=== PATIENT | female | born 1990 | race Caucasian/White ===

== ENCOUNTER 2018-02-15 10:30 | Observation (INO) | payer MEDICAID ==
[2018-02-12 16:18] LABS: CLARITY,URINE CLEAR (Clear); COLOR,URINE YELLOW (Yellow); GLUCOSE, URINE NEGATIVE (Neg); KETONES,URINE NEGATIVE (Neg); LEUKOCYTE ESTERASE ,URINE NEGATIVE (Neg); NITRITES, URINE NEGATIVE (Neg); OCCULT BLOOD,URINE NEGATIVE (Neg); PH,URINE 5.5 (4.8-8.0); PROTEIN,URINE NEGATIVE (Neg); UROBILINOGEN,URINE 0.2 E.U/dL (0.2-1.0)
[2018-02-12 16:21] LABS: BASOPHILS % (AUTO) 0.3 % (0-1); EOSINOPHILS # (AUTO) 0.2 X10'3 (0-0.9); EOSINOPHILS % (AUTO) 1.8 % (0-6); LYMPHOCYTES # (AUTO) 2.3 X10'3 (1.1-4.8); LYMPHOCYTES % (AUTO) 18.1 % (21-51); MEAN CORPUSCULAR HEMOGLOBIN 29.5 PG (27.0-31.0); MEAN CORPUSCULAR HGB CONC 34.5 % (33.0-36.5); MEAN CORPUSCULAR VOLUME 85.4 FL (78-98); MEAN PLATELET VOLUME 7.2 FL (7.4-10.4); MONOCYTES # (AUTO) 0.7 X10'3 (0-0.9); MONOCYTES % (AUTO) 5.2 % (2-12); NEUTROPHILS # (AUTO) 9.4 X10'3 (1.8-7.7); NEUTROPHILS % (AUTO) 74.6 % (42-75); PRE OP HEMATOCRIT 40.9 % (35.0-45.0); PRE OP HEMOGLOBIN 14.1 g/dL (12.0-16.0); PRE OP PLATELET COUNT 313 X10'3 (140-440); RED BLOOD COUNT 4.79 X10'6 (4.20-5.60); RED CELL DISTRIBUTION WIDTH 13.1 % (11.5-14.5)
[2018-02-12 16:21] LABS: UA COLLECTION TYPE NON-SPECIFIED
[2018-02-12 16:35] LABS: ALBUMIN 3.9 G/DL (3.4-5.0); ALBUMIN/GLOBULIN RATIO 0.9 (1.1-1.5); ALKALINE PHOSPHATASE 92 IU/L (46-116); BETA HCG,QUANTITATIVE < 1.0 mIU/ml; BLOOD UREA NITROGEN 13 MG/DL (7-18); BUN/CREATININE RATIO 17.6 (6.6-38.0); CALCIUM 9.3 MG/DL (8.5-10.1); CHLORIDE 103 MMOL/L (99-107); CREATININE 0.74 MG/DL (0.40-0.90); PRE OP ALT 25 U/L (30-65); PRE OP ANION GAP 11 (8-16); PRE OP AST 15 U/L (10-37); PRE OP BILIRUB, TOTAL 0.3 MG/DL (0.0-1.0); PRE OP GLUCOSE 103 MG/DL (70-104); PRE OP POTASSIUM 3.8 MMOL/L (3.4-5.1); PRE OP SODIUM 142 MMOL/L (135-145); TOTAL CARBON DIOXIDE 27.6 MMOL/L (24-32); TOTAL PROTEIN 8.2 G/DL (6.4-8.2); eGFR > 90 ML/MIN
[~2018-02-15] VITALS: Ht 162.6 cm; Wt 127.0 kg
[2018-02-15] VITALS (24 sets, daily range): BP systolic 94–149; BP diastolic 44–98
[~2018-02-15 10:30] MED LIST: NO HOME MEDS; ceFOXitin 2 GM ADDvantage bag 100 ML IV ONE; famotidine 20mg tablet PO ONE; ringers solution, lacted 1,000 ML IV SCH
[2018-02-15] MEDS ORDERED: scopolamine 1.5mg patch.TD72 TD ONE (11:38)
[2018-02-15] MEDS ORDERED: epiNEPHrine 1 mg/ml inj ONE (12:47)
[2018-02-15] MEDS ORDERED: fentaNYL/PF 50MCG/1 ML 2ML syringe ONE ×3 (13:28→14:07)
[2018-02-15] MEDS ORDERED: midazolam 2 mg/2 ml injection ONE (13:29)
[2018-02-15] MEDS: BUPIVAcaine/PF 2.5 mg/ml (0.25%) 30ml vial ONE ×2 (14:05→14:06)
[2018-02-15] MEDS ORDERED: ketorolac trometh. 30mg/ml inj. ONE (14:10)
[2018-02-15] MEDS ORDERED: dexamethasone sod phosphate 4mg/ml inj. ONE (14:10)
[2018-02-15] MEDS ORDERED: propofol inj 60 ML IV ONE (14:10)
[2018-02-15] MEDS ORDERED: ondansetron/PF 4mg/2ml inj ONE (14:10)
[2018-02-15] MEDS ORDERED: HYDROmorphone inj. 0.5 MG/0.5 ML DISP.SYRIN IV PRN ×2 (14:15)
[2018-02-15] MEDS ORDERED: meperidine/PF 50mg/ml syringe IV PRN (14:15)
[2018-02-15] MEDS ORDERED: ringers solution, lacted 1,000 ML IV SCH (14:15)
[2018-02-15] MEDS ORDERED: fentaNYL/PF 50MCG/1 ML 2ML syringe IV PRN ×2 (14:15)
[2018-02-15] MEDS ORDERED: proCHLORperazine 10 MG/2 ml inj IV PRN (14:15)
[2018-02-15] MEDS ORDERED: ondansetron/PF 4mg/2ml inj IV PRN ×2 (14:15→17:40)
[2018-02-15] MEDS ORDERED: ipratropium/albuterol 3ml nebule NEB ONE (16:20)
[2018-02-15] MEDS ORDERED: potassium Cl 20 mEq SR tablet PO PRN ×2 (17:40)
[2018-02-15] MEDS ORDERED: albuterol 2.5 MG/3 ML nebule NEB PRN (17:40)
[2018-02-15] MEDS ORDERED: magnesium Cl slow-release 64mg tablet PO PRN (17:40)
[2018-02-15] MEDS: K and/or MAG REPLACEMENT MC SCH (17:40)
[2018-02-15] MEDS ORDERED: potassium Cl 40MEQ/NS 500ml 500 ML IV PRN ×2 (17:40)
[2018-02-15] MEDS ORDERED: magnesium 2GM in 50ml NS 50 ML IV PRN (17:40)
[2018-02-15] MEDS ORDERED: magnesium hydroxide 30ml (MOM) UD suspension PO PRN (17:40)
[2018-02-15] MEDS ORDERED: mag hydrox/Alum hydrox/simeth 30ml oral suspension PO PRN (17:40)
[2018-02-15] MEDS ORDERED: magnesium 4gm in 100ml NS 100 ML IV PRN (17:40)
[2018-02-15] MEDS ORDERED: HYDROcodone/acetaminophen 10/325mg tab PO PRN (17:40)
[2018-02-15] MEDS ORDERED: acetaminophen 325mg tablet PO PRN ×2 (17:40)
[2018-02-15] MEDS: normal saline 1000ml 1,000 ML IV SCH (17:59)
[2018-02-15] MEDS ORDERED: iohexol 350MG/ML 100ml bottle IV ONE (18:10)
[2018-02-15] MEDS: HYDROcodone/acetaminophen 5mg/325mg tablet PO PRN (19:47)
[2018-02-15] MEDS ORDERED: temazepam 15mg capsule PO PRN (21:00)
[2018-02-16] VITALS (7 sets, daily range): BP systolic 91–109; BP diastolic 37–65
[2018-02-16] MEDS: HYDROcodone/acetaminophen 5mg/325mg tablet PO PRN ×2 (01:59→10:35)
[2018-02-16] MEDS: normal saline 1000ml 1,000 ML IV SCH (05:50)
[2018-02-16 05:59] LABS: HEMATOCRIT 34.2 % (35.0-45.0); HEMOGLOBIN 11.7 g/dl (12.0-16.0); MEAN CORPUSCULAR HEMOGLOBIN 29.4 PG (27.0-31.0); MEAN CORPUSCULAR HGB CONC 34.1 % (33.0-36.5); MEAN CORPUSCULAR VOLUME 86.2 FL (78-98); MEAN PLATELET VOLUME 7.5 FL (7.4-10.4); PLATELET COUNT 243 X10'3 (140-440); RED BLOOD COUNT 3.97 X10'6 (4.20-5.60); RED CELL DISTRIBUTION WIDTH 12.5 % (11.5-14.5); WHITE BLOOD COUNT 12.4 X10'3 (4.5-11.0)
[2018-02-16 06:33] LABS: ALBUMIN 2.8 G/DL (3.4-5.0); ANION GAP 10 (8-16); BLOOD UREA NITROGEN 10 MG/DL (7-18); BUN/CREATININE RATIO 16.9 (6.6-38.0); CALCIUM 7.5 MG/DL (8.5-10.1); CHLORIDE 108 MMOL/L (99-107); CREATININE 0.59 MG/DL (0.40-0.90); GLUCOSE 132 MG/DL (70-104); MAGNESIUM 1.6 MG/DL (1.5-2.4); POTASSIUM 3.7 MMOL/L (3.5-5.1); SODIUM 142 MMOL/L (135-145); TOTAL CARBON DIOXIDE 23.9 MMOL/L (24-32); eGFR > 90 ML/MIN
[2018-02-16] MEDS: K and/or MAG REPLACEMENT MC SCH (08:00)
== END 2018-02-16 13:50 | disposition home or self-care (01) ==
LOC: PAS 10:30 → SUR 3N 17:37
PROVIDERS: ADMIT Family Medicine; ATTEND Obstetrics & Gynecology Obstetrics
DX: Z30.2 Encounter for sterilization (principal); J96.00 Acute respiratory failure, unspecified whether with hypoxia or hypercapnia; E66.01 Morbid (severe) obesity due to excess calories; Z98.51 Tubal ligation status
CPT/HCPCS: 36415; 58661; 71275; 80048; 80053; 81003; 82948; 83735; 84702; 85025; 85027; 86885; 86900; 86901; 87070; 94640; 94760; 96374; 96375; G0378; J0171; J0694; J1100; J1170; J1885; J2175; J2250; J2405; J2704; J3010; J3490; J7030; J7120; Q9967; A7000

== ENCOUNTER 2020-04-16 07:46 | Observation (INO) | payer BC ==
[2020-04-09 15:29] LABS: BASOPHILS % (AUTO) 0.5 % (0-1); EOSINOPHILS # (AUTO) 0.2 X10'3 (0-0.9); EOSINOPHILS % (AUTO) 2.1 % (0-6); LYMPHOCYTES # (AUTO) 2.5 X10'3 (1.1-4.8); LYMPHOCYTES % (AUTO) 27.9 % (21-51); MEAN CORPUSCULAR HEMOGLOBIN 28.9 PG (27.0-31.0); MEAN CORPUSCULAR HGB CONC 33.5 g/dL (33.0-36.5); MEAN CORPUSCULAR VOLUME 86.1 FL (78-98); MEAN PLATELET VOLUME 6.9 FL (7.4-10.4); MONOCYTES # (AUTO) 0.6 X10'3 (0-0.9); MONOCYTES % (AUTO) 6.8 % (2-12); NEUTROPHILS # (AUTO) 5.7 X10'3 (1.8-7.7); NEUTROPHILS % (AUTO) 62.7 % (42-75); PRE OP HEMOGLOBIN 14.1 g/dL (12.0-16.0); PRE OP PLATELET COUNT 264 X10'3 (140-440); RED BLOOD COUNT 4.88 X10'6 (4.20-5.60); RED CELL DISTRIBUTION WIDTH 13.6 % (11.5-14.5)
[2020-04-09 15:43] LABS: ALBUMIN 3.9 G/DL (3.4-5.0); ALKALINE PHOSPHATASE 67 IU/L (46-116); BLOOD UREA NITROGEN 10 MG/DL (7-18); BUN/CREATININE RATIO 11.9 (6.6-38.0); CALCIUM 8.6 MG/DL (8.5-10.1); CHLORIDE 106 MMOL/L (99-107); CREATININE 0.84 MG/DL (0.40-0.90); PRE OP ALT 36 U/L (30-65); PRE OP ANION GAP 11 (8-16); PRE OP AST 31 U/L (10-37); PRE OP BILIRUB, TOTAL 0.4 MG/DL (0.0-1.0); PRE OP GLUCOSE 79 MG/DL (70-104); PRE OP POTASSIUM 3.7 MMOL/L (3.4-5.1); PRE OP SODIUM 143 MMOL/L (135-145); TOTAL CARBON DIOXIDE 26.2 MMOL/L (24-32); TOTAL PROTEIN 7.9 G/DL (6.4-8.2); eGFR 81 ML/MIN
[2020-04-09 15:56] LABS: HCG SERUM QL NEGATIVE
[2020-04-09 16:06] LABS: COLOR,URINE YELLOW (Yellow); GLUCOSE, URINE NEGATIVE (Neg); KETONES,URINE TRACE mg/dl (Neg); LEUKOCYTE ESTERASE ,URINE NEGATIVE (Neg); NITRITES, URINE NEGATIVE (Neg); OCCULT BLOOD,URINE NEGATIVE (Neg); PROTEIN,URINE NEGATIVE (Neg); UROBILINOGEN,URINE 0.2 E.U/dL (0.2-1.0)
[2020-04-09 16:07] LABS: CLARITY,URINE SLIGHTLY CLOUDY (Clear); UA COLLECTION TYPE CLN CATCH MIDSTREAM
[2020-04-09 16:09] LABS: MUCUS STRANDS MANY /LPF (Neg); SQUAMOUS EPITHELIAL CELL,UR FEW /LPF (FEW)
[2020-04-09 16:10] LABS: BACTERIA,URINE FEW /HPF (Neg); RBC,URINE 0-2 /HPF (0-2); WBC,URINE 0-4 /HPF (0-4)
[~2020-04-16] VITALS: Ht 162.6 cm; Wt 128.0 kg
[2020-04-16] VITALS (19 sets, daily range): BP systolic 113–136; BP diastolic 50–89
[~2020-04-16 07:46] MED LIST changes: +AMIT50TA3 PO; -NO HOME MEDS; +PRAM0.129 PO; +TRAM50TA2 PO; -ceFOXitin 2 GM ADDvantage bag 100 ML IV ONE; +ceFOXitin 2GM-NS 100mL ADDvant 100 ML IV ONE; +ceFOXitin sod/dextrose 2g/50ml 50 ML IV ONE; -ringers solution, lacted 1,000 ML IV SCH
[2020-04-16] MEDS ORDERED: neomy sulf/polymyxin B sulf. GU irrigation 1ml amp IR ONE (08:17)
[2020-04-16] MEDS ORDERED: clindamycin phosphate 40gm vag cream ONE (08:17)
[2020-04-16] MEDS ORDERED: BUPIVAcaine/PF 2.5 mg/ml (0.25%) 30ml vial ONE (08:17)
[2020-04-16] MEDS ORDERED: vasoPRESSIN 20 units/ml inj. ONE (08:18)
[2020-04-16] MEDS: ringers solution, lacted 1,000 ML IV SCH ×4 (08:33→21:23)
[2020-04-16] MEDS ORDERED: scopolamine 1.5mg patch.TD72 TD ONE (09:00)
[2020-04-16] MEDS ORDERED: sevoflurane 250ml liquid IH ONE (10:02)
[2020-04-16] MEDS ORDERED: fentaNYL /PF 50mcg/ml 5ml ampule ONE (10:04)
[2020-04-16] MEDS ORDERED: midazolam 2 mg/2 ml injection ONE (10:04)
[2020-04-16] MEDS ORDERED: propofol inj 20 ML IV ONE (10:06)
[2020-04-16] MEDS ORDERED: ringers solution, lacted 1,000 ML IV SCH ×2 (12:20→13:29)
[2020-04-16] MEDS ORDERED: proCHLORperazine 10 MG/2 ml inj IV PRN (12:20)
[2020-04-16] MEDS ORDERED: meperidine/PF 25mg/ml syringe IV PRN ×2 (12:20)
[2020-04-16] MEDS ORDERED: ondansetron/PF 4mg/2ml inj IV PRN ×3 (12:20→13:30)
[2020-04-16] MEDS ORDERED: morphine 2 MG/ML inj. syringe IV PRN (12:20)
[2020-04-16] MEDS ORDERED: ondansetron/PF 4mg/2ml inj ONE (12:56)
[2020-04-16] MEDS ORDERED: rocuronium 10mg/ml inj IV ONE (12:56)
[2020-04-16] MEDS ORDERED: acetaminophen 1,000mg/100ml IV 100 ML IV ONE (12:57)
[2020-04-16] MEDS ORDERED: dexamethasone sod phosphate 4mg/ml inj. ONE (12:57)
[2020-04-16] MEDS ORDERED: neostigmine methylsulfate 1 MG/ML 10ml vial ONE (13:24)
[2020-04-16] MEDS ORDERED: glycopyrrolate 0.2mg/ml inj ONE (13:24)
[2020-04-16] MEDS ORDERED: LORazepam 2 mg/ml vial IV PRN ×2 (13:25→13:30)
[2020-04-16] MEDS ORDERED: temazepam 15mg capsule PO PRN ×2 (13:25→13:30)
[2020-04-16] MEDS ORDERED: normal saline 500ml IV soln 500 ML IV PRN ×2 (13:25→13:30)
[2020-04-16] MEDS ORDERED: magnesium hydroxide 30ml (MOM) UD suspension PO PRN ×2 (13:25→13:30)
[2020-04-16] MEDS ORDERED: HYDROcodone/acetaminophen 10/325mg tab PO PRN ×3 (13:25→13:30)
[2020-04-16] MEDS ORDERED: metoclopramide 5 mg/ml inj IV PRN ×2 (13:25→13:30)
[2020-04-16] MEDS ORDERED: diphenhydrAMINE 50 mg/ml inj IV PRN ×2 (13:25→13:30)
[2020-04-16] MEDS ORDERED: ketorolac trometh. 30mg/ml inj. IV PRN (13:30)
--- NOTE | 2020-04-16 13:37 | NUR ---
Received from OR via surgical bed, accompanied by Anesthesiologist Skye and report given by Anesthesiolgist. Pt not yet responsive to questions, sleepy but all VS WNL mask to 10L and sats 98%. Lap sites open to air CDI and pad in place scant drainage, 20G left hand LR at 100cc/hr. SCDs on. Will continue to monitor closely.
[2020-04-16] MEDS: meperidine/PF 25mg/ml syringe IV PRN ×3 (13:56→14:40)
[2020-04-16] MEDS: morphine 4 MG/ML inj SYRINge IV PRN ×2 (14:05→14:26)
[2020-04-16] MEDS: HYDROmorphone inj. 0.5 MG/0.5 ML DISP.SYRIN IV PRN ×2 (14:41→14:47)
--- NOTE | 2020-04-16 15:00 | NUR ---
Pt stated pain much more tolerable after dilaudid. Pt has met all other criteria for transfer see PACU intervention.
--- NOTE | 2020-04-16 15:07 | NUR ---
Report called to receiving nurse. Transferred via surgical bed. Belongings sent to patients room by bed. Special Issues communicated to receiving nurse. BLL and call light within reach, surgical sites visualized. Chart at bedside and post op VS stable.
--- NOTE | 2020-04-16 15:15 | NUR ---
received pt from recovery via bed. Pt painful. Advised pt of pain management plan and POC. Spouse appointed designated visitor will join her shortly on the unit. Lap sits x 3 C&D. Ritika pad present with scant drainage. Taylor to gravity clear yellow. Call light in reach, bed low for safety. Belongings left in recovery will be brought up with next post op.
--- NOTE | 2020-04-16 15:30 | NUR ---
Two RN Skin Assessment has been completed at 1530 with FREDERICK Fierro,all skin assessed,with the following findings.Skin clear with the exception of 3 lap sites.
--- NOTE | 2020-04-16 15:45 | NUR ---
was called to inform of pain 06/08 despite almost maxed doses of recovery pain meds ordered. Dilaudid orders received. Addendum: 04/16/20 at 2562 by Elaine Espinoza RN INCORRECT TIME - note supposed to be entered at [id number]
[2020-04-16] MEDS: ceFAZolin 1GM/D5W- ADD-VANTAGE 50 ML IV SCH ×2 (16:42→23:13)
[2020-04-16] MEDS: ketorolac trometh. 30mg/ml inj. IV PRN ×2 (16:44→23:17)
--- NOTE | 2020-04-16 18:24 | NUR ---
Problems reprioritized. Patient report given, questions answered & plan of care reviewed with FREDERICK Mock.
--- NOTE | 2020-04-16 18:33 | NUR ---
Patient in room [facility]. I have received report from FREDERICK Chaves and had the opportunity to ask questions and assume patient care.
[2020-04-16] MEDS: docusate sod 100mg capsule PO SCH (19:12)
[2020-04-16] MEDS ORDERED: docusate sod 100mg capsule PO SCH (20:00)
[2020-04-16] MEDS ORDERED: amitriptyline 50mg tablet PO SCH (21:00)
[2020-04-16] MEDS ORDERED: pramipexole 0.25mg tablet PO SCH (21:00)
[2020-04-16] MEDS: HYDROcodone/acetaminophen 10/325mg tab PO PRN (21:42)
[2020-04-17] VITALS: BP 125/71
[2020-04-17] MEDS: HYDROcodone/acetaminophen 10/325mg tab PO PRN ×2 (01:49→08:32)
[2020-04-17 04:42] VITALS: BP 129/78
[2020-04-17] MEDS: ketorolac trometh. 30mg/ml inj. IV PRN ×2 (04:55→10:35)
[2020-04-17 05:17] LABS: BASOPHILS % (AUTO) 0.3 % (0-1); EOSINOPHILS % (AUTO) 0.1 % (0-6); HEMATOCRIT 37.8 % (35.0-45.0); HEMOGLOBIN 12.8 g/dl (12.0-16.0); LYMPHOCYTES # (AUTO) 1.6 X10'3 (1.1-4.8); LYMPHOCYTES % (AUTO) 10.7 % (21-51); MEAN CORPUSCULAR HEMOGLOBIN 29.3 PG (27.0-31.0); MEAN CORPUSCULAR HGB CONC 33.8 g/dL (33.0-36.5); MEAN CORPUSCULAR VOLUME 86.6 FL (78-98); MEAN PLATELET VOLUME 7.1 FL (7.4-10.4); MONOCYTES # (AUTO) 0.8 X10'3 (0-0.9); MONOCYTES % (AUTO) 5.6 % (2-12); NEUTROPHILS # (AUTO) 12.6 X10'3 (1.8-7.7); NEUTROPHILS % (AUTO) 83.3 % (42-75); PLATELET COUNT 304 X10'3 (140-440); RED BLOOD COUNT 4.37 X10'6 (4.20-5.60); RED CELL DISTRIBUTION WIDTH 13.1 % (11.5-14.5); WHITE BLOOD COUNT 15.1 X10'3 (4.5-11.0)
[2020-04-17 05:27] LABS: ALBUMIN 3.4 G/DL (3.4-5.0); ANION GAP 8 (8-16); BLOOD UREA NITROGEN 10 MG/DL (7-18); BUN/CREATININE RATIO 10.2 (6.6-38.0); CALCIUM 8.4 MG/DL (8.5-10.1); CHLORIDE 108 MMOL/L (99-107); CREATININE 0.98 MG/DL (0.40-0.90); GLUCOSE 99 MG/DL (70-104); POTASSIUM 4.2 MMOL/L (3.5-5.1); SODIUM 143 MMOL/L (135-145); TOTAL CARBON DIOXIDE 26.9 MMOL/L (24-32); eGFR 68 ML/MIN
--- NOTE | 2020-04-17 06:25 | NUR ---
Patient in room [facility] 354. I have received report from FREDERICK Mock and had the opportunity to ask questions and assume patient care.
[2020-04-17 06:30] VITALS: BP 109/55
--- NOTE | 2020-04-17 06:32 | NUR ---
Problems reprioritized. Patient report given, questions answered & plan of care reviewed with FREDERICK Montoya.
--- NOTE | 2020-04-17 06:52 | NUR ---
INITIAL CHECK ON PT, SLEEPING, NO APPARENT DISTRESS, WILL CONTINUE TO MONITOR. Addendum: 04/17/20 at 0706 by Lou RODRIGUEZ Amended: Links added.
[2020-04-17] MEDS ORDERED: enoxaparin 40mg/0.4ml syringe SQ SCH ×2 (08:00)
[2020-04-17] MEDS: docusate sod 100mg capsule PO SCH (08:34)
[2020-04-17] MEDS: ceFAZolin 1GM/D5W- ADD-VANTAGE 50 ML IV SCH (08:38)
[2020-04-17 11:00] VITALS: BP 112/60
--- NOTE | 2020-04-17 12:05 | NUR ---
DC inst provided to pt. IV DC'd, tip intact. All belongings sent w/pt. WC to front lobby.
--- NOTE | 2020-04-17 12:18 | NUR ---
Student documentation: I have reviewed and agree with all interventions, assessments performed and documented by Lou, nursing services manager.
== END 2020-04-17 12:08 | disposition home or self-care (01) ==
LOC: PAS 07:46 → SUR 3N 13:29
PROVIDERS: ADMIT Obstetrics & Gynecology Obstetrics; ATTEND Obstetrics & Gynecology Obstetrics
DX: Z03.818 Encounter for observation for suspected exposure to other biological agents ruled out (principal); N94.10 Unspecified dyspareunia; N94.6 Dysmenorrhea, unspecified
CPT/HCPCS: 36415; 58550; 80048; 80053; 81001; 82948; 84703; 85025; 86885; 86900; 86901; 87081; 93005; 96365; 96366; 96372; 96375; 96376; G0378; J0131; J0690; J0694; J1100; J1170; J1885; J2175; J2250; J2270; J2405; J2704; J2710; J3010; J3490; J7120; U0003; A4314; A4618; A7000; J1650